=== PATIENT | male | born 1955 | race Caucasian/White ===

== ENCOUNTER → 2017-01-29 | Outpatient (CLI) | payer OTHER ==
[~2017-01-29] MED LIST: AGELESS MALE PO; ASPIRIN EC81 MG PO; BALANCE B-1001 EACH PO; CO Q-10100 MG PO; FLAX SEED OIL1000 MG PO; MELATIN3 MG PO; NIACIN CONTROL500 MG PO; NITROSTAT0.4 MG SL; NORVASC2.5 MG PO; OMEGA-3-FISH O1 EACH PO; OSTEO BI-FLEX1 EAC2 PO; PREVEGEN PO; PROBIOTIC1 EAC2 PO; PROVIL200 MG PO; SAW PALMETTO450 MG PO; THERAGRAN-M1 TAB PO; TUMERIC PO; VITAMIN A8000 UNIT PO; VITAMIN C500 M1 PO; VITAMIN D35000 UNI1 PO; VITAMIN E400 UNIT PO; ZINC50 M2 PO; [UNRECOGNIZED DRUG - OTHER] PO
--- NOTE | ~2017-01-29 | ESTC ---
Cardiac Perfusion Imaging Demographics Patient Name RUCHI Olmstead Gender Male Patient Number [id number] Race Visit Number [id number] Ethnicity Corporate ID Room Number Accession Number [id number] Height Date of 1955 Weight Age 61 year(s) BSA Referring Physician Melani Mueller MD BMI Raymond Davion [place] MD Interpreting Melani Mueller MD Date of study 01/29/2017 Physician Supervising /LINDSAY [place] NM Technologist CHASE Ordering Physician Stress electronic systems technician Stress ECG Reading Kilo [place] Nurse Barber Shukla Physician CHASE RN Tommy Sr RN The procedure was explained in detail to the patient. Risks, complications and alternative treatments were reviewed. Written consent was obtained. Medications Reviewed with Patient prior to Procedure. Procedure Procedure Type: Nuclear Stress Test:Exercise, Cardiolite Stress Test Procedure Start time: 01/29/2017 09:47 Indications: Shortness of Breath with Exertion and Exertional Chest Pain. Risk Factors The patient risk factors include:family history of premature CAD. Conclusions Summary Cardiolite SPECT images demonstrates an moderate sized area of inducible reversible defect of moderate severity involving the inferolateral wall. No evidence of underlying fixed defect. Normal TID ratio Gated images demonstrate normal left ventricular systolic function without inducible wall motion abnormalities. LVEF is 66% Stress Protocols Resting ECG RSR without ST or T wave changes Resting HR:77 bpm Resting BP:124/75 mmHg Pre-stress physical exam: Complained of chest pain and shortness breath with activity. Currently no chest pain. Stress Protocol:Exercise Peak HR:153 bpm HR response: Appropriate Peak BP:156/60 mmHg BP response: Appropriate Predicted HR: 157 bpm HR/BP product:78433 % of predicted HR: 97 Max exercise: 8 METS Test duration:07:01 min Reason for termination:Target heart rate Exercise effort:Good Perceived exertion:13 ECG Findings Sinus tachycardia. ST depression Lead II, III, AVF, V5, V6. ST segments resolved within 2 minutes in recovery. Arrhythmias None Symptoms Shortness of breath. No chest pain Stress Interpretation The electrocardiographic portion of the stress test was negative for ischemia. Blood pressure response was normal, heart rate response was normal for exertion. The Rivera Treadmill Score was -2. This corresponds to a intermediate risk stress test. Stress supervision and interpretation provided by Aleksandra Boateng APRN . Imaging Results Summed scores - Summed stress score: 7 - Summed rest score: 2 - Summed difference score: 5 Stress ejection Ejection fraction:66 % EDV :104 ml ESV :35 ml Stroke volume :69 ml LV mass :151 gr Imaging Protocols Rest Stress Isotope:Tc99m Sestamibi IV Isotope: Tc99m Sestamibi IV Isotope dose:15.2 mCi Isotope dose:46.3 mCi Date:01/29/2017 07:44 Date:01/29/2017 09:35 Technique: SPECT Technique: Gated Supine SPECT Supine Scan Time:45-60 minutes post Scan Time:45-60 minutes post injection injection Medical History Admission Data Admission date: 01/29/2017 Admission Time: 07:26 Hospital Status: Outpatient. Signatures dtt: Ervin Polo (cardio) dtd: 01/29/17 0947 Physician Self Edit
== END | disposition disaster alternative care site (69) ==
LOC: GRAD 07:26
DX: R07.9 Chest pain, unspecified (principal); Z82.49 Family history of ischemic heart disease and other diseases of the circulatory system
CPT/HCPCS: A9500

== ENCOUNTER 2017-02-09 06:02 | Outpatient (CLI) | payer OTHER ==
[~2017-02-09] VITALS: Ht 188 cm; Wt 114.7 kg
--- NOTE | ~2017-02-09 | CATH ---
Cardiac Diagnostic Report Demographics Patient Name RUCHI Olmstead Gender Male Date of 1955 Age 61 year(s) Patient Number [id number] Date of Study 02/09/2017 Visit Number [id number] Room Number [id number] [place] [id number] Ht 187.96 cm Wt 114.7 kg Referring Melani Mueller MD Primary Physician Physician Performing Melani Mueller MD Secondary Physician Physician Diagnostic Melani Mueller MD Assisting Physician Physician Interventional Physician Wire Rope Sling Maker Physician Findings and Conclusions Diagnostic Findings and Conclusion 1 vessel CAD Normal LV function Diagnostic Recommendations Medical Therapy Routine post perclose Procedure Description The patient was brought to the diagnostic cardiac catheterization-EP laboratory in the fasting, non-sedated state. Informed consent was obtained in the written and verbal form after the risks and benefits were explained. The patient had no further questions and agreed to proceed. The planned puncture-incision site(s) were shaved and prepped with ChloraPrep and draped in the usual sterile manner. Conscious sedation, supplemental oxygen, and pain control medications were delivered by a registered nurse under physician guidance. Surface ECG rhythm, blood pressure measurement, and pulse oximetry were monitored throughout the procedure. Arterial access. The access site was infiltrated with lidocaine. The vessel was entered with the Seldinger technique. A sheath was advanced into the vessel and used for catheter placement. Selective left coronary angiography. A catheter was advanced into the left coronary vessel ostium under Fluoroscopic guidance. Contrast was injected by hand. Images were obtained in multiple projections. Selective right coronary angiography. A catheter was advanced into the right coronary vessel ostium under fluoroscopic guidance. Contrast was injected by hand. Images were obtained in multiple projections. Left heart catheterization with ventriculography. A catheter was advanced across the aortic valve to the left ventricle under fluoroscopic guidance. Resting hemodynamics were obtained. With the catheter at the left ventricular apex, contrast was injected. Images were obtained in PRATEEK projections. Post-ventriculography LV pressure was obtained. The catheter was gradually withdrawn into the aorta with continuous pressure recording. Arterial artery hemostasis was achieved. The patient was transferred to a regular nursing floor via cart accompanied by a nurse. The patient left the laboratory in stable condition. Diagnostic Cath Status: Elective Procedure Procedure Type Diagnostic procedure:Ventriculogram:, Left, Angiography:, Coronary Angios w/[facility] Indications: Abnormal Stress Test and Shortness of breath. The procedure was explained in detail to the patient. Risks, complications and alternative treatments were reviewed. Written consent was obtained. Medications Reviewed with Patient prior to Procedure. Angiographic Findings Dominance: Right Cardiac Arteries and Lesion Findings LMCA: Normal (0% Stenosis).Large LAD: Normal (0% Stenosis).LAD medium. Diag 1 medium LCx: Normal (0% Stenosis).Circ non dominant and large. Om medium with distal 100% occlusion with L-L collaterals. Lesion on 1st Ob Jackie: Distal subsection.100% stenosis .Chronic total occlusion. RCA: Normal (0% Stenosis).RCA dominant and large. PL and PDA medium and normal Coronary Tree Procedure Data Procedure Date Date: 02/09/2017Start: 08:58 AMEnd: 09:18 AM Entry Locations - Percutaneous access was performed through the Right Femoral artery (Primary location). A 6 Fr sheath was inserted. Hemostasis was successfully obtained using Perclose ProGlide ([employer]). Closure Comments: Deployed by [employer] . Procedure Medications Order and Administration + + +-------+------+ !Time !Medication !Dosage !Route ! + + +-------+------+ !02/09/2017 08:53 AM !Versed !2 mg !I.V. ! + + +-------+------+ !02/09/2017 08:53 AM !Fentanyl !25 mcg !I.V. ! + + +-------+------+ !02/09/2017 09:01 AM !Fentanyl !25 mcg !I.V. ! + + +-------+------+ Devices Used - A6 Fr. BS JL 4 Diag. Catheterwas used for:Left coronary angiography. - A6 Fr. BS JR 4 Diag. Catheterwas used for:Right coronary angiography. - A6 Fr. BS Angled Pigtail Diag. Catheterwas used for:Left ventriculography. Contrast Material - Isovue [id number] ml Fluoroscopy Time: Diagnostic: 2:48 minutes. Total: 2:48 minutes. Fluoroscopy Dose: Diagnostic: 923 mGy. Total: 923 mGy. Estimated Blood Loss: 4 ml. Medical History Performed Procedures and Imaging Results - Standard exercise stress testwas performed. Results were: Positive. Allergies - No known allergies. Risk Factors The patient risk factors include:family history of premature CAD. Admission Data Admission Date: 02/09/2017 Admission Time: 06:02 AM Admit Source: Other Admission Medications + +------+-------+ + + + + !Medication!Dosage!Times !Last !Last !Administered !Comments ! ! ! !Per Day!Delivery !Delivery ! ! ! ! ! ! !Date !Time ! ! ! + +------+-------+ + + + + !Aspirin ! ! ! ! !Yes ! ! !(any) ! ! ! ! ! ! ! + +------+-------+ + + + + Clinical Evaluation Leading to Procedure - The patient's CAD presentation was assessed as: Stable angina. VA LV function assessed as:Normal. Ejection Fraction - 01/29/2017 - Method: Radionucleotide. EF%: 65. - 02/09/2017 - Method: LV gram. EF%: 70. LVA Segment Contractility 1 - Normal 3 - Mild 5 - Severe 7 - Dyskinesis hypokinesis hypokinesis 2 - 4 - Moderate 6 - Akinesis 8 - Aneurysm Hypokinesis hypokinesis Hemodynamics Condition: Rest O2 Consumption: Estimated: 276.76Heart Rate: 66 bpm Pressures (mmHg) +-----+ + !Site !Pressure ! +-----+ + !AO !125/68 (92) ! +-----+ + !LV !134/10 ,21 ! +-----+ + !LV !131/9 ,20 ! +-----+ + !LV !119/8 ,15 ! +-----+ + !LV !125/9 ,17 ! +-----+ + !AO !133/77 (102) ! +-----+ + !LV !129/9 ,16 ! +-----+ + Valve Gradients and Areas + +---------+---------+---------+ +---------+ + !Valve !Peak !Mean !Area !Index !Flow !Source ! + +---------+---------+---------+ +---------+ + !Aortic !0 !0 ! ! ! ! ! + +---------+---------+---------+ +---------+ + !Aortic !0 !0 ! ! ! ! ! + +---------+---------+---------+ +---------+ + Shunts Oxygen Values O2 Capacity 205.36 O2 Consumption 276.76 Discharge Data Discharge Date: 02/09/2017 Hospital Status: Outpatient Signatures dtt: Ervin Polo (cardio) dtd: 02/09/17 0858 Physician Self Edit
[~2017-02-09 06:02] MED LIST changes: -NORVASC2.5 MG PO
[2017-02-09] MEDS ORDERED: NORVASC2.5 MG PO (10:17)
== END 2017-02-09 12:45 | disposition disaster alternative care site (69) ==
LOC: GPCU 06:02 → GCAT 06:02
DX: R07.9 Chest pain, unspecified (principal)
CPT/HCPCS: C1760; J1644; J2001; J2250; J3010; J7030